=== PATIENT | female | born 1975 | race Caucasian/White ===

== ENCOUNTER 2016-11-27 17:14 | Emergency (ER) | payer BC ==
[2016-11-27] MEDS ORDERED: Pantoprazole IV* 40 MG IV ONE (19:36)
[2016-11-27] MEDS ORDERED: Ondansetron INJ* 2 MG/ML VIAL IV ONE (19:36)
[2016-11-27] MEDS ORDERED: HYDROmorphone* 1 MG/ML 1 ML SYR IV ONE (19:36)
[2016-11-27] MEDS ORDERED: NS 0.9% IV ONE (19:37)
[2016-11-27 19:49] LABS: Budding Yeast Present (Absent); Urine Bacteria Absent (Absent); Urine Bilirubin Negative (Negative); Urine Glucose 3+(>=500 mg/dL) (Negative); Urine Nitrite Negative (Negative)
[2016-11-27] MEDS ORDERED: NS 0.9% 1000 ML* 1,000 ML IV ONE (19:54)
--- NOTE | 2016-11-27 20:04 | RAD ---
INDICATION: Fever COMPARISON: None TECHNIQUE: An AP portable view obtained at 1946 hours is submitted. FINDINGS: Bones/Soft Tissues: There are no acute bony findings. Cardiomediastinal: The cardiomediastinal silhouette is normal. Lungs: There are no infiltrates. Pleura: There are no pleural effusions. Other: None IMPRESSION: NO ACTIVE DISEASE.
[2016-11-27 20:07] LABS: Hematocrit 41 % (35-47); Hemoglobin 13.5 g/dl (12.0-16.0); Mean Corpuscular HGB Conc 33 g/dl (31-36); Mean Corpuscular Hemoglobin 28 pg (27-31); Mean Corpuscular Volume 85 fL (80-97); Mean Platelet Volume 7 um3 (7.4-10.4); Red Blood Count 4.82 10^6/ul (4.0-5.4); Red Cell Distribution Width 14 % (10.5-15); White Blood Count 16.3 10^3/ul (3.5-10.8)
[2016-11-27 20:23] LABS: BUN/Creatinine Ratio 12.3 (8-20); Calcium 9.4 mg/dL (8.6-10.3); EGFR African American 129.8 (>60); Globulin 3.2 g/dL (2-4); Potassium 3.2 mmol/L (3.5-5.0); Total Bilirubin 0.5 mg/dL (0.2-1.0); Total Protein 7.2 g/dL (6.4-8.9)
[2016-11-27] MEDS ORDERED: Potassium Chlor TAB* 20 MEQ TAB.ER PO ONE (20:36)
--- NOTE | 2016-11-27 21:01 | ED ---
Johann Rangel Rebecca, scribed for Yandy Kramer MD on 11/27/16 at 1930 . HPI Febrile Illness - HPI Summary HPI Summary: Pt is a 41 y/o F who presents to ED c/o fever. Reports her fever was 102 earlier today. Additionally c/o moderate epigastric burning, worsened L flank pain, dysuria and fatigue. Reports that food aggravates her epigastric pain. Reports that 2 weeks ago she had two left kidney stones blasted at [facility] for which she had a stent put in place that is still present. The stent was supposed to be removed 1 week ago, but the X-ray that has been done was unreadable by the urologist, per patient, pushing back the stent removal back to this coming Sunday (2 days from today). - History of Current Complaint Chief Complaint: EDUrogenitalProblems Hx Obtained From: Patient Onset/Duration: Started Hours Ago - Started earlier today Temperature: 102 F - Per pt Current Severity: Moderate Pain Intensity: 5 - Epigastric and L flank Pain Scale Used: 0-10 Numeric Aggravating Factors: Other: - Epigastric pain - food Alleviating Factors: Nothing Associated Signs and Symptoms: Dysuria, Other: - Fatigue, L flank pain, epigastric pain - Allergy/Home Medications Allergies/Adverse Reactions: Allergies Allergy/AdvReac Type Severity Reaction Status Date / Time NSAIDs AdvReac Intermediate GI Upset Verified 12/21/14 14:58 PMH/Surg Hx/FS Hx/Imm Hx Endocrine/Hematology History: Reports: Hx Diabetes - Type 2, non insulin dependent Denies: Hx Thyroid Disease Cardiovascular History: Denies: Hx Congestive Heart Failure, Hx Hypertension Respiratory History: Denies: Hx Asthma, Hx Chronic Obstructive Pulmonary Disease (COPD) GI History: Denies: Hx Ulcer History: Denies: Hx Renal Disease - Cancer History Cancer Type, Location and Year: high grade cervical dysplasia - Surgical History Surgery Procedure, Year, and Place: partial HYSTERECTOMY d/t endometriosis. LEEP Infectious Disease History: No Infectious Disease History: Denies: Hx Clostridium Difficile, Hx Hepatitis, Hx Human Immunodeficiency Virus (HIV), Hx of Known/Suspected MRSA, Hx Shingles, Hx Tuberculosis, Hx Known/ Suspected VRE, Hx Known/Suspected VRSA, History Other Infectious Disease, Traveled Outside the [place] in Last 30 Days - Family History Known Family History: Positive: Diabetes - Social History Alcohol Use: Rare Substance Use Type: Reports: None Smoking Status (MU): Heavy Every Day Tobacco Smoker Type: Cigarettes Amount Used/How Often: 1/2 PPD Review of Systems Positive: Fever, Fatigue Positive: Abdominal Pain - Epigastric burning Positive: dysuria, flank pain - L flank pain All Other Systems Reviewed And Are Negative: Yes Physical Exam - Summary Physical Exam Summary: General: Well appearing, no pain distress, is not ill appearing. Skin: Warm, Skin Color Reflects Adequate Perfusion, Dry Eyes: EOMI, NATALI ENT: Pharynx normal, TMs normal Neck: Supple, nontender Respiratory: CTA, breath sounds present, no rhonchi, no wheezes, no rales Cardiovascular: RRR, no murmur, no rub, no gallop Abdomen: Soft, nontender, Non-distended, no guarding, no rebound Bowel: Present Musculoskeletal: AYLA, No edema, L flank tenderness. Neuro: Sensory/motor intact, A&Ox3, CN intact 2-12 Psych: Affect/mood appropriate Triage Information Reviewed: Yes Vital Signs On Initial Exam: Initial Vitals Temp Pulse Resp BP Pulse Ox 97 F 103 19 112/61 99 11/27/16 17:25 11/27/16 17:25 11/27/16 17:25 11/27/16 17:25 11/27/16 17:25 Vital Signs Reviewed: Yes Diagnostics - Vital Signs Vital Signs Temp Pulse Resp BP Pulse Ox 11/27/16 18:11 97.5 F 94 18 115/67 100 11/27/16 17:25 97 F 103 19 112/61 99 - Laboratory Lab Results: Lab Results 11/27/16 11/27/16 11/27/16 Range/Units 18:30 19:55 19:55 WBC 16.3 H (3.5-10.8) 10^3/ul RBC 4.82 (4.0-5.4) 10^6/ul Hgb 13.5 (12.0-16.0) g/dl Hct 41 (35-47) % MCV 85 (80-97) fL MCH 28 (27-31) pg MCHC 33 (31-36) g/dl RDW 14 (10.5-15) % Plt Count 301 (150-450) 10^3/ul MPV 7 L (7.4-10.4) um3 Neut % (Auto) 69.3 (38-83) % Lymph % (Auto) 20.3 L (25-47) % Trinity % (Auto) 7.8 (1-9) % Eos % (Auto) 2.0 (0-6) % Baso % (Auto) 0.6 (0-2) % Absolute Neuts (auto) 11.3 H (1.5-7.7) 10^3/ul Absolute Lymphs (auto) 3.3 (1.0-4.8) 10^3/ul Absolute Monos (auto) 1.3 H (0-0.8) 10^3/ul Absolute Eos (auto) 0.3 (0-0.6) 10^3/ul Absolute Basos (auto) 0.1 (0-0.2) 10^3/ul Absolute Nucleated RBC 0 10^3/ul Nucleated RBC % 0 INR (Anticoag Therapy) 1.00 (0.89-1.11) APTT 29.4 (26.0-36.3) seconds Sodium (133-145) mmol/L Potassium (3.5-5.0) mmol/L Chloride (101-111) mmol/L Carbon Dioxide (22-32) mmol/L Anion Gap (2-11) mmol/L BUN (6-24) mg/dL Creatinine (0.51-0.95) mg/dL Est GFR ( Amer) (>60) Est GFR (Non-Af Amer) (>60) BUN/Creatinine Ratio (8-20) Glucose (70-100) mg/dL Lactic Acid (0.5-2.0) mmol/L Calcium (8.6-10.3) mg/dL Total Bilirubin (0.2-1.0) mg/dL AST (13-39) U/L ALT (7-52) U/L Alkaline Phosphatase (34-104) U/L Total Protein (6.4-8.9) g/dL Albumin (3.2-5.2) g/dL Globulin (2-4) g/dL Albumin/Globulin Ratio (1-3) Lipase (11.0-82.0) U/L Beta HCG, Quant mIU/mL Urine Color Yellow Urine Appearance Cloudy Urine pH 6.0 (5-9) Ur Specific Bea[place]ont 1.014 (1.010-1.030) Urine Protein Negative (Negative) Urine Ketones Negative (Negative) Urine Blood 2+ H (Negative) Urine Nitrate Negative (Negative) Urine Bilirubin Negative (Negative) Urine Urobilinogen Negative (Negative) Ur Leukocyte Esterase 3+ H (Negative) Urine WBC (Auto) 3+(>20/hpf) H (Absent) Urine RBC (Auto) 2+(6-10/hpf) H (Absent) Ur Squamous Epith Cells Present H (Absent) Urine Bacteria Absent (Absent) Urine Yeast Present H (Absent) Urine Glucose 3+(>=500 mg/dl) H (Negative) 11/27/16 11/27/16 Range/Units 19:55 19:55 WBC (3.5-10.8) 10^3/ul RBC (4.0-5.4) 10^6/ul Hgb (12.0-16.0) g/dl Hct (35-47) % MCV (80-97) fL MCH (27-31) pg MCHC (31-36) g/dl RDW (10.5-15) % Plt Count (150-450) 10^3/ul MPV (7.4-10.4) um3 Neut % (Auto) (38-83) % Lymph % (Auto) (25-47) % Trinity % (Auto) (1-9) % Eos % (Auto) (0-6) % Baso % (Auto) (0-2) % Absolute Neuts (auto) (1.5-7.7) 10^3/ul Absolute Lymphs (auto) (1.0-4.8) 10^3/ul Absolute Monos (auto) (0-0.8) 10^3/ul Absolute Eos (auto) (0-0.6) 10^3/ul Absolute Basos (auto) (0-0.2) 10^3/ul Absolute Nucleated RBC 10^3/ul Nucleated RBC % INR (Anticoag Therapy) (0.89-1.11) APTT (26.0-36.3) seconds Sodium 135 (133-145) mmol/L Potassium 3.2 L (3.5-5.0) mmol/L Chloride 101 (101-111) mmol/L Carbon Dioxide 26 (22-32) mmol/L Anion Gap 8 (2-11) mmol/L BUN 8 (6-24) mg/dL Creatinine 0.65 (0.51-0.95) mg/dL Est GFR ( Amer) 129.8 (>60) Est GFR (Non-Af Amer) 101.0 (>60) BUN/Creatinine Ratio 12.3 (8-20) Glucose 100 (70-100) mg/dL Lactic Acid 0.5 (0.5-2.0) mmol/L Calcium 9.4 (8.6-10.3) mg/dL Total Bilirubin 0.50 (0.2-1.0) mg/dL AST 9 L (13-39) U/L ALT 7 (7-52) U/L Alkaline Phosphatase 65 (34-104) U/L Total Protein 7.2 (6.4-8.9) g/dL Albumin 4.0 (3.2-5.2) g/dL Globulin 3.2 (2-4) g/dL Albumin/Globulin Ratio 1.3 (1-3) Lipase 41 (11.0-82.0) U/L Beta HCG, Quant 0.91 mIU/mL Urine Color Urine Appearance Urine pH (5-9) Ur Specific Beaumont (1.010-1.030) Urine Protein (Negative) Urine Ketones (Negative) Urine Blood (Negative) Urine Nitrate (Negative) Urine Bilirubin (Negative) Urine Urobilinogen (Negative) Ur Leukocyte Esterase (Negative) Urine WBC (Auto) (Absent) Urine RBC (Auto) (Absent) Ur Squamous Epith Cells (Absent) Urine Bacteria (Absent) Urine Yeast (Absent) Urine Glucose (Negative) Result Diagrams: 11/27/16 19:55 11/27/16 19:55 Lab Statement: Any lab studies that have been ordered have been reviewed, and results considered in the medical decision making process. - Radiology CXR Xray Interpretation: No Acute Changes - NO ACTIVE DISEASE. Radiology Interpretation Completed By: Radiologist Course/Dx - Course Course Of Treatment: 41 yo female with left ureteral stent placed by a urologist out of [facility] after infected stone. Pt now with fevers at home and uti on labs with wbc of 16, pt not appearing septic but given 30 cc/kg of NS and zosyn. Pt accepted for transfer by Dr. Garner in the ED at [facility] - Diagnoses Provider Diagnoses: Infection associated with indwelling ureteral stent - Provider Notifications Discussed Care Of Patient With: Mehran Garner Time Discussed With Above Provider: 20:47 Instructed by Provider To: Transfer - Accepted as an ED to ED transfer Discharge - Discharge Plan Condition: Stable Disposition: TRANS HIGHER LVL OF CARE FAC Referrals: Non Staff,Doctor [Primary Care Provider] - The documentation as recorded by the Johann brumfield Rebecca accurately reflects the service I personally performed and the decisions made by me, Yandy Kramer MD.
[2016-11-27 21:51] VITALS: BP 110/58
== END 2016-11-27 22:13 | disposition short-term general hospital (02) ==
LOC: ED 17:14
DX: T83.592A Infection and inflammatory reaction due to indwelling ureteral stent, initial encounter (principal); R53.83 Other fatigue; R10.13 Epigastric pain; Z32.02 Encounter for pregnancy test, result negative; E11.9 Type 2 diabetes mellitus without complications; Z79.4 Long term (current) use of insulin; Z88.6 Allergy status to analgesic agent; F17.210 Nicotine dependence, cigarettes, uncomplicated
CPT/HCPCS: 36415; 71010; 80053; 81003; 81015; 83605; 83690; 84702; 85025; 85610; 85730; 87040; 87086; 87106; 96374; 96375; 99283; J1170; J2405; J2543

== ENCOUNTER 2019-03-26 08:41 | Emergency (ER) | payer BC ==
--- OUTSIDE RECORDS SUMMARY | 2019-03-26 08:50 | XMS REPORT | Continuity of Care Document ---
:1975 External Reference #:[id number] Author Name Xochilt Diallo M.D. Address [address] [place] [address] Care Team Providers Name Role Phone Xochilt Diallo M.D. - Family Medicine Care Team Information Director Of Automation Unavailable [facility] - Care Team Information Director Of Automation [phone] Gastroenterology Problems Active Problems Provider Date Type 2 diabetes mellitus Maribel Barrera NP Onset: 10/14/2018 Obesity Xochilt Diallo M.D. Onset: 11/06/2018 Social History Type Date Description Comments Sex Unknown Tobacco Use Start: Unknown End: Former Cigarette Smoker 1/2 ppd quit 10/2018 Unknown Smoking Status Reviewed: 11/06/18 Former Cigarette Smoker 1/2 ppd quit 2018 ETOH Use Rare Recreational Drug Use Negative For Denies Drug Use Tobacco Use Start: Unknown End: Patient is a former Unknown smoker Recreational Drug Use Negative For Former Drug User Exercise Type/Frequency Exercises regularly Allergies, Adverse Reactions, Alerts Active Allergies Reaction Severity Comments Date Metformin GI upset 01/03/2017 Morphine Itching, Nausea, 07/16/2018 Medications Active Medications SIG Qnty Indications Ordering Date Provider Invokana 1 by mouth every 90tabs Xochilt Diallo, 11/14/2018 100mg Tablets day M.D. Januvia 1 by mouth every 90tabs Xochilt Diallo, 11/06/2018 100mg Tablets day M.D. Atorvastatin Calcium 1 by mouth every 90tabs Xochilt Diallo, 07/26/2018 day M.D. 10mg Tablets Freestyle Lite Test test blood sugar 100units Maribel Singh 04/13/2017 three times a MARIFER Barrera Strips day dx e11.9 last appt 01/03/17 Glipizide take 1 tablet by 180tabs Xochilt Diallo, 01/04/2016 10mg Tablets mouth every M.D. morning then 1 tablet every evening Metamucil Smooth bid Unknown Texture 28.3% Powder Fish Oil take one capsule Unknown 1000mg by mouth every Capsules day (heart health) Vitamin C take one every Unknown 500mg Tablets day B Complex-B12 Unknown Tablets Centrum Adults Unknown Tablets History Medications Nicotine Polacrilex 2 mg PO q1-2h 60units F17.211 Xochilt [place], 2018 - x6wk Jesse 02/19/2019 2mg Gum Immunizations Description No Information Available Vital Signs Date Vital Result Comment 02/19/2019 8:44am BP Systolic 110 mmHg BP Diastolic 72 mmHg Heart Rate 68 /min Body Temperature 98.0 F Respiratory Rate 16 /min Weight 189.00 lb 11/06/2018 10:35am BP Systolic 110 mmHg BP Diastolic 70 mmHg Heart Rate 72 /min Body Temperature 98.0 F Respiratory Rate 16 /min Weight 183.00 lb Results Test Date Facility Test Result H/L Range Note Comprehensive Metabolic 01/27/2019 [facility]) Sodium 137 mEq/L 134-149 Prof Potassium 4.3 mEq/L 3.6-5.5 Chloride 103 mEq/L 94-112 Carbon Dioxide 23 mEq/L 21-32 Glucose 168 mg/dL High 70-105 BUN 15 mg/dL 6-26 Creatinine 0.6 mg/dL 0.6-1.4 BUN/Creat Ratio 25.0 CALC 8.0-36.0 Calcium 9.1 mg/dL 8.6-10.2 Total Protein 6.6 g/dL 6.4-8.3 Albumin 4.4 g/dL 3.8-5.5 Globulin 2.2 g/dL 2.0-4.8 A/G Ratio 2.0 CALC 0.6-2.3 Alk. Phosphatase 60 U/L 30-110 Alt (SGPT) 16 U/L 7-35 Ast (Sgot) 14 U/L 5-34 Total Bilirubin 0.8 mg/dL 0.2-1.3 GFR Non- >60 ml/min/1.73m^ >=60 GFR >60 ml/min/1.73m^ >=60 Lipid Profile 01/27/2019 [facility]) Cholesterol 135 mg/dL 120- 200 Triglycerides 111 mg/dL 30-200 HDL Cholesterol 45 mg/dL 30-85 LDL (Calculated) 68 CALC 0-129 VLDL Cholesterol 22 mg/dL 0-50 HDL Risk Factor 3.0 CALC 0.0-4.4 Laboratory test finding 01/27/2019 Jermaine Becerra([facility]) TSH 5.48 mIU/L 0.50-6.00 Free T4 1.04 ng/dL 0.75-1.54 CBC Electronic a 01/27/2019 Jermaine Mariam(a) WBC 8.6 x10^3/UL 4.0- 10.0 RBC 4.89 x10^6/UL 3.93-6.00 HGB 14.8 g/dL 12.0-17.0 HCT 42 % 35-50 MCV 86.3 fL 80.0-95.0 MCH 30.3 pg 25.6-32.2 MCHC 35.1 g/dL 32.2-36.0 RDW-CV 12.2 % 11.6-14.4 PLT 249 x10^3/UL 163-400 MPV 8.7 fL Low 9.4-12.4 Klaus# 5.16 x10^3/UL 1.56-6.13 Lymph# 2.54 x10^3/UL 1.18-3.74 Mcleod# 0.59 x10^3/UL 0.24-0.82 Eos # 0.2 x10^3/UL 0.0-0.5 Baso # 0.03 x10^3/UL 0.01-0.08 Klaus% 60.3 % 34.0-70.0 Lymph % 29.7 % 20.0-52.0 Mcleod% 6.9 % 5.0-12.0 Eos% 2.3 % 0.7-7.0 Baso% 0.4 % 0.1-1.2 Laboratory test 01/27/2019 [facility] Hemoglobin A1c 7.1% % High 4.1 -5.7 finding (607)- - (Fma) Microalb, Random (Fma/CMC/CTX) <5.0 mg/L 0.5-37 Ua - Non Micro (Fma) 01/27/2019 [facility] Appearance clear (607)- - Color yellow Glucose, Urine (Fma/CMC/CTX) 500mg/dl High known diabetic Bilirubin neg Ketones neg SP Grav 1.015 Blood neg PH 6.5 Protein neg Urobil 0.2 Nitrite neg Leukocytes (Fma/CMC/Centrex) neg Procedures Date Code Description Status 06/11/2018 234604734 Diabetic Retinal Eye Exam Completed 07/10/2017 [id number] Mammogram Completed 01/05/2017 [id number] Mammogram Completed Medical Devices Description No Information Available Encounters Type Date Location Provider Dx Diagnosis Office Visit 11/06/2018 [facility] Office Xochilt Diallo E11.9 Type 2 diabetes 10:20a M.D. mellitus without complications E66.9 Obesity, unspecified F17.211 Nicotine dependence, cigarettes, in remission Assessments Date Code Description Provider 02/19/2019 E11.9 Type 2 diabetes mellitus without complications Xochilt Diallo M.D. 02/19/2019 E66.9 Obesity, unspecified Xochilt Diallo M.D. 02/19/2019 F17.211 Nicotine dependence, cigarettes, in remission Xochilt Diallo M.D. 01/27/2019 E11.9 Type 2 diabetes mellitus without complications Xochilt Diallo M.D. 11/06/2018 E11.9 Type 2 diabetes mellitus without complications Xochilt Diallo M.D. 11/06/2018 E66.9 Obesity, unspecified Xochilt Diallo M.D. 11/06/2018 F17.211 Nicotine dependence, cigarettes, in remission Xochilt Diallo M.D. Plan of Treatment Future Appointment(s):07/22/2019 4:00 pm - Xochilt Diallo M.D. at [facility] Etbwwu7202/19/2019 - Xochilt Diallo M.D.E11.9 Type 2 diabetes mellitus without complicationsNew Labs:Hemoglobin A1c (Fma), Ordered: 02/19/19Comments:Recommend yearly diabetic eye and foot exams, and check on blood pressure periodically. Goal blood sugar is less than 140 in the morning or A1c less than 7. Recommend monitoring portion size, decreased carbohydrate intake (breads, pasta , rice, candy, desserts, and sweetened beverages/alcohol) and routine daily exercise. refer dieticianFollow up:physical/pap in 66.9 Obesity, unspecifiedNew Labs:Hemoglobin A1c (Fma), Ordered: 02/19/19Comments:Counseled on heart healthy diet such as Mediterranean diet. Eat protein and vegetables first then carbohydrates last. Get at least 150 minutes of moderate aerobic activity or 75 minutes of vigorous aerobic activity a week, or a combination of moderate and vigorous activity. General goal of 30 minutes of physical activity a day. refer to [id number] Nicotine dependence, cigarettes, in remissionAllComments:Medication Management Patient Understands medications she' s taking? Yes No Are there Barriers to Adherence? Yes No Has the patient been asked about herbal supplements and therapies, and OTC meds? Yes No Functional Status Description No Information Available Mental Status Description No Information Available Referrals Description No Information Available
[2019-03-26 09:04] VITALS: BP 118/70
--- NOTE | 2019-03-26 09:42 | UC ---
Back Pain HPI - HPI Summary HPI Summary: right mid back pain x 1 week pain is 7 out of 10 , worse with movements , better with rest, no radiation of the pain no known injury , denies any weakness, no urinary sx - History of Current Complaint Chief Complaint: UCBackPain Stated Complaint: RIGHT SIDE BACK PAIN Time Seen by Provider: 03/26/19 09:06 Hx Obtained From: Patient Hx Last Menstrual Period: HYSTERECTOMY Onset/Duration: Gradual Onset, Lasting Days - 7, Still Present Timing: Constant Severity Initially: Moderate Severity Currently: Moderate Pain Intensity: 7 Pain Scale Used: 0-10 Numeric Back Pain: Is Discrete @ - right mid back Character: Dull, Aching, Spasmodic Aggravating Factor(s): Movement, Walking, Cough Alleviating Factor(s): Rest, Heat Associated Signs And Symptoms: Negative: Swelling, Redness, Bruising, Fever, Weakness, Numbness, Tingling, Abdominal Pain, Flank Pain - Allergies/Home Medications Allergies/Adverse Reactions: Allergies Allergy/AdvReac Type Severity Reaction Status Date / Time NSAIDS (Non-Steroidal AdvReac Intermediate GI Upset Verified 03/26/19 08:59 Anti-Inflamma Home Medications: Home Medications Atorvastatin* [Lipitor*] 10 mg PO 1700 03/26/19 [History Confirmed 03/26/19] Canagliflozin (NF) [Invokana (NF)] 100 mg PO DAILY 03/26/19 [History Confirmed 03/26/19] glipiZIDE TAB* [Glucotrol TAB*] 10 mg PO BID 03/26/19 [History Confirmed ] PMH/Surg Hx/FS Hx/Imm Hx Endocrine History: Diabetes Cancer History: Cervical Cancer - Surgical History Surgical History: Yes Surgery Procedure, Year, and Place: partial HYSTERECTOMY d/t endometriosis. LEEP - Family History Known Family History: Positive: Diabetes - Social History Alcohol Use: Rare Substance Use Type: None Smoking Status (MU): Former Smoker Type: Cigarettes Amount Used/How Often: 1/2 PPD When Did the Patient Quit Smoking/Using Tobacco: 09/2018 Household Exposure Type: Cigarettes Review of Systems All Other Systems Reviewed And Are Negative: Yes Constitutional: Positive: Negative Skin: Positive: Negative Eyes: Positive: Negative ENT: Positive: Negative Respiratory: Positive: Negative Is Patient Immunocompromised?: No Physical Exam Triage Information Reviewed: Yes Appearance: Well-Nourished, Pain Distress Vital Signs: Initial Vital Signs Temp 97.6 F 03/26/19 09:00 Pulse 66 03/26/19 09:00 Resp 15 03/26/19 09:00 BP 118/70 03/26/19 09:00 Pulse Ox 97 03/26/19 09:00 Vital Signs Reviewed: Yes Eye Exam: Normal Eyes: Positive: Conjunctiva Clear ENT: Positive: Normal ENT inspection, Hearing grossly normal, Pharynx normal Neck exam: Normal Neck: Positive: Supple, Nontender, No Lymphadenopathy Respiratory: Positive: Chest non-tender, Lungs clear, Normal breath sounds Cardiovascular: Positive: RRR, No Murmur, Pulses Normal Abdomen Description: Positive: Nontender, Soft. Negative: CVA Tenderness (R), CVA Tenderness (L), Distended, Guarding Bowel Sounds: Positive: Present Musculoskeletal: Positive: Other: - back exam : no swelling, no erythema, no rash, + tenderness right mid back pain with flexion and extention and rotation Back Pain Course/Dx - Differential Dx/Diagnosis Provider Diagnosis: Strain of mid-back Discharge ED - Sign-Out/Discharge Documenting (check all that apply): Patient Departure All imaging exams completed and their final reports reviewed: No Studies - Discharge Plan Condition: Stable Disposition: HOME Prescriptions: Cyclobenzaprine TAB* [Flexeril 10 MG TAB*] 10 mg PO BID PRN #20 tab PRN Reason: Pain - Moderate Naproxen [Naproxen 500 mg tab] 500 mg PO BID #20 tablet. Patient Education Materials: Thoracic Back Strain (ED) Referrals: Xochilt Diallo MD [Primary Care Provider] - 1 Week - Billing Disposition and Condition Condition: STABLE Disposition: Home
== END 2019-03-26 09:17 | disposition home or self-care (01) ==
LOC: UCCORT 08:41
DX: S39.012A Strain of muscle, fascia and tendon of lower back, initial encounter (principal); E11.9 Type 2 diabetes mellitus without complications; Z79.84 Long term (current) use of oral hypoglycemic drugs; Z85.41 Personal history of malignant neoplasm of cervix uteri; Z87.891 Personal history of nicotine dependence; Z88.8 Allergy status to other drugs, medicaments and biological substances; X58.XXXA Exposure to other specified factors, initial encounter; Y92.9 Unspecified place or not applicable
CPT/HCPCS: 99212; G0463